=== PATIENT | female | born 1940 | race Caucasian/White ===

== ENCOUNTER → 2017-01-01 | Outpatient (CLI) | payer MEDICARE, BC ==
[~2017-01-01] MED LIST: ASPI-482 PO; CALC600T4 PO; CETI10TA22 PO; CHOL20002 PO; CRESTOR5 MG PO; EZET10TA18 PO; FAMO20TA5 PO; FERR-36 PO; FURO40TA4 PO; HYDR-2762 PO; INSU100C4 SQ; INSU100V13 SQ; LEVO88TA4 PO; LISI-338 PO; MULT-245 PO; POTA20TA12 PO; PROB500T PO; PROP20TA PO; [UNRECOGNIZED DRUG - CODE] PO
--- NOTE | 2017-01-01 15:29 | RAD ---
Examination: Ultrasound left lower extremity venous duplex History: History of DVT, thrombosis Comparison: None available. Technique: Grayscale, color Doppler 2-D, spectral waveform analysis of the left lower extremity venous system were performed. Findings: The visualized common femoral vein, superficial femoral vein, popliteal vein demonstrates normal compression and augmentation of flow. The visualized calf veins are patent. Impression: No evidence of deep venous thrombosis identified in the left lower extremity venous system.
== END | disposition home or self-care (01) ==
LOC: US 14:48
PROVIDERS: ATTEND Family Medicine
DX: I82.442 Acute embolism and thrombosis of left tibial vein (principal)
CPT/HCPCS: 93971

== ENCOUNTER → 2017-01-04 | Outpatient (CLI) | payer MEDICARE, BC ==
[~2017-01-04] MED LIST changes: +IOHEXOL 240 MG/ML 50ML VIAL. ONE
--- NOTE | 2017-01-04 10:51 | RAD ---
Indication left flank pain. Chronic kidney disease. Axial images through the abdomen and pelvis were obtained. Oral contrast was administered. IV contrast was not. Note is made of a previous examination 3 years ago. There is a triangular area of volume loss in the lingula which likely reflects atelectasis. Follow-up imaging, in several months, establishing stability should be considered. Nonsolid neoplastic process accounting for the appearance is not entirely excluded. A definite acute or significant finding at either lung base is not seen. The liver and spleen appear unremarkable. Clips are noted in the gallbladder fossa. The pancreas appears unremarkable. No adrenal masses are seen. There are occasional minute left renal calculi. There is no hydronephrosis hydroureter or definite calcification seen along the course of either ureter. No acute finding is apparent in the abdomen. Diverticular disease is seen associated with the large bowel. This is most pronounced in the sigmoid colon. Active inflammation is not seen. An acute finding in the pelvis is not apparent. IMPRESSION: No acute finding seen in the abdomen or pelvis. Area of volume loss in the lingula probably reflecting atelectasis or scar. Follow-up imaging in several months, assessing stability, should be considered. Diverticular disease predominantly centered on the sigmoid colon. Active inflammation is not seen.
== END | disposition home or self-care (01) ==
LOC: CT 08:49
PROVIDERS: ATTEND Family Medicine
DX: I12.9 Hypertensive chronic kidney disease with stage 1 through stage 4 chronic kidney disease, or unspecified chronic kidney disease (principal); N18.3 Chronic kidney disease, stage 3 (moderate); K57.90 Diverticulosis of intestine, part unspecified, without perforation or abscess without bleeding; E11.9 Type 2 diabetes mellitus without complications; Z79.01 Long term (current) use of anticoagulants
CPT/HCPCS: 74176; Q9966

== ENCOUNTER → 2018-07-06 | Outpatient (CLI) | payer MEDICARE, BC ==
[~2018-07-06] MED LIST changes: -HYDR-2762 PO; +HYDR-2765 PO; -IOHEXOL 240 MG/ML 50ML VIAL. ONE
--- NOTE | 2018-07-06 10:09 | RAD ---
[employer] Compliance statement: One or more of the following individualized dose reduction techniques were utilized for this examination: 1. Automated exposure control. 2. Adjustment of the mA and/or kV according to patient size. 3. Use of iterative reconstruction technique. Indication:Fell x 3 days ago, headache/dizziness, Dr. Conway will call pt with results TECHNIQUE: CT head without IV contrast COMPARISON:None FINDINGS: No pathologic extra-axial or intra-axial fluid collection. The ventricles and basal cisterns are within normal limits. No acute intracranial bleed. No focal loss of baldwin-white differentiation. No large scalp hematoma. Visualized orbits are within normal limits. There is near complete opacification of the left maxillary sinus. Rest of the paranasal sinuses and mastoid air cells are clear. No acute calvarial fractures. IMPRESSION: 1. No acute intracranial bleed or calvarial fractures. 2. Opacification of the left maxillary sinus likely chronic sinusitis. Electronically signed by: Speedy Cutler DO (07/06/2018 10:05 AM) [facility]
== END | disposition home or self-care (01) ==
LOC: CT 09:22
PROVIDERS: ATTEND Physician Assistant
DX: R51 Headache (principal); R42 Dizziness and giddiness
CPT/HCPCS: 70450

== ENCOUNTER → 2019-12-24 | Outpatient (CLI) | payer MEDICARE, BC ==
[~2019-12-24] MED LIST changes: -CETI10TA22 PO; +CETI10TA24 PO; -EZET10TA18 PO; +EZET10TA20 PO
[2019-12-24 09:48] LABS: BASO % 1 % (0-3); EOS # 0.4 x10^3/uL (0.0-0.7); EOS % 7 % (0-3); HEMATOCRIT 41.8 % (36.0-47.0); LYMPH # 1.9 x10^3/uL (1.0-4.8); LYMPH % 29 % (24-48); MEAN CORPUSCULAR HEMOGLOBIN 33 pg (25-35); MEAN CORPUSCULAR HGB CONC 34 g/dL (31-37); MEAN CORPUSCULAR VOLUME 97 fL (79-100); MONO # 0.5 x10^3/uL (0.0-1.1); MONO % 8 % (0-9); NEUT # 3.7 x10^3uL (1.8-7.7); NEUT % 56 % (31-73); PLATELET COUNT 179 x10^3/uL (140-400); RED CELL DISTRIBUTION WIDTH 13.1 % (11.5-14.5); WHITE BLOOD COUNT 6.6 x10^3/uL (4.0-11.0)
[2019-12-24 09:54] LABS: ALBUMIN 3.6 g/dL (3.4-5.0); CALCIUM 9.4 mg/dL (8.5-10.1); CREATININE 1.8 mg/dL (0.6-1.0); GFR 27.1; PHOSPHORUS 3.8 mg/dL (2.6-4.7); POTASSIUM 4.4 mmol/L (3.5-5.1)
[2019-12-25 00:06] LABS: CALCIUM PTH 9.6 mg/dL (8.7-10.3); CREATININE PTH 1.63 mg/dL (0.57-1.00); PTH INTACT 38 pg/mL (15-65)
== END | disposition home or self-care (01) ==
LOC: LAB 08:56
PROVIDERS: ATTEND Internal Medicine Nephrology
DX: E11.22 Type 2 diabetes mellitus with diabetic chronic kidney disease (principal); N18.3 Chronic kidney disease, stage 3 (moderate); N04.2 Nephrotic syndrome with diffuse membranous glomerulonephritis; Z68.33 Body mass index [BMI] 33.0-33.9, adult
CPT/HCPCS: 36415; 80069; 83970; 85025